=== PATIENT | male | born 1950 | race Caucasian/White ===

== ENCOUNTER → 2016-12-02 | Outpatient (CLI) | payer OTHER ==
[~2016-12-02] MED LIST: BUPR-79 PO; CHOL2000 PO; CLON0.5T3 PO; DOCU100C PO; FLUO10CA48 PO; LISI-725 PO; MULT-600 PO; OMEG10007 PO; PSYL1POW4 PO; ROSU20TA PO; TAMS0.4C38 PO; VITAMIN B12 PO
== END | disposition home or self-care (01) ==
LOC: C.LABBC 12:47
PROVIDERS: ATTEND Nurse Practitioner Adult Health
DX: R97.20 Elevated prostate specific antigen [PSA] (principal); R39.9 Unspecified symptoms and signs involving the genitourinary system

== ENCOUNTER → 2016-12-23 | Outpatient (CLI) | payer OTHER ==
[2016-12-23 13:01] LABS: BASO % 0.5 %; BASO ABS # 0.03 K/uL (0-0.2); COMPLETE YES; EOS % 3.4 %; HEMATOCRIT 41.1 % (42-52); IG% 0.2 %; LYMPH % 15.8 %; LYMPH ABS # 0.89 K/uL (1.2-3.4); MEAN CORPUSCULAR HGB CONC 34.8 g/dl (32-36); MEAN PLATELET VOLUME 9.2 fL (7.4-10.4); MONO % 7.6 %; NEUT % 72.5 %; PLATELET COUNT 263 K/uL (130-400); RED BLOOD COUNT 4.62 M/uL (4.7-6.1); WHITE BLOOD COUNT 5.63 K/uL (4.8-10.8)
[2016-12-23 13:05] LABS: URINE APPEARANCE CLEAR (CLEAR); URINE BILIRUBIN NEG (NEG); URINE COLOR YELLOW; URINE EPITHELIAL CELL AUTO 0-5 /lpf (0-5); URINE NITRITE NEG (NEG); URINE PH 5.5 (4.5-7.5); URINE SPECIFIC GRAVITY 1.014 (1.000-1.030); UROBILINOGEN NEG (NEG); ZZUR CULT IF INDIC CLEAN CATCH NO
[2016-12-23 13:13] LABS: MANUAL MICROSCOPIC REQUIRED? NO; REVIEW REQ? NO
[2016-12-23 13:16] LABS: ALT/SGPT 22 U/L (12-78); AST/SGOT 14 U/L (15-37); BLOOD UREA NITROGEN 25 mg/dl (7-18); BUN/CREATININE RATIO 16.4 (10-20); CALCIUM 9.4 mg/dl (8.5-10.1); CARBON DIOXIDE 23 mmol/L (21-32); CHLORIDE 104 mmol/L (98-107); CHOLESTEROL 122 mg/dl (0-200); GLUCOSE 98 mg/dl (70-99); POTASSIUM 4.9 mmol/L (3.5-5.1); SODIUM 136 mmol/L (136-145); TRIGLYCERIDES 99 mg/dl (0-150); VERY LOW DENSITY LIPOPROT CALC 20 mg/dl
[2016-12-23 13:26] LABS: ALB/GLOB RATIO 1.3 (0.9-2); ALKALINE PHOSPHATASE 74 U/L (45-117); CHOLESTEROL/HDL RATIO 2.9; FERRITIN 205.8 ng/ml (8.0-388.0); HDL CHOLESTEROL 42 mg/dl; LDL CHOLESTEROL CALCULATED 60 mg/dl; THYROID STIMULATING HORMONE < 0.005 uIu/ml (0.300-4.500); TOTAL IRON BINDING CAPACITY 311 mcg/dl (250-450)
--- NOTE | 2016-12-27 10:32 | CODING QUERY MEDICAL NECESSITY ---
SUPPORTING DIAGNOSIS NEEDED A supporting diagnosis is required for the test/procedure performed on this patient in order for us to be reimbursed by the patient's insurance. Please provide a supporting diagnosis for the following test/procedure listed below next to the test name along with your signature. *If there is no additional diagnosis for this patient that would support the following test/procedure please document that below next to the test/procedure. Test(s)/Procedure(s) that require a supporting diagnosis: * VITAMIN B-12 LEVEL DIAGNOSIS: * DOS: 12/23/16 Provider Signature: Date: Thank you Adalgisa Villareal Health Information Management Once completed, please kindly fax back to [phone] For questions please call [phone]
== END | disposition home or self-care (01) ==
LOC: C.LAB1850 11:07
PROVIDERS: ATTEND Internal Medicine
DX: E78.00 Pure hypercholesterolemia, unspecified (principal); I10 Essential (primary) hypertension; Z11.59 Encounter for screening for other viral diseases; G25.81 Restless legs syndrome

== ENCOUNTER → 2017-01-18 | Outpatient (CLI) | payer OTHER | END | disposition home or self-care (01) | LOC: C.LABBC 12:19 | PROVIDERS: ATTEND Urology | DX: N41.9 Inflammatory disease of prostate, unspecified (principal) ==

== ENCOUNTER → 2017-01-31 | Outpatient (CLI) | payer OTHER | END | disposition home or self-care (01) | LOC: C.RDSM 13:30 | PROVIDERS: ATTEND Physical Medicine & Rehabilitation Sports Medicine | DX: M17.11 Unilateral primary osteoarthritis, right knee (principal); M25.561 Pain in right knee; Z96.652 Presence of left artificial knee joint; R94.6 Abnormal results of thyroid function studies; R79.89 Other specified abnormal findings of blood chemistry ==

== ENCOUNTER → 2017-01-31 | Outpatient (CLI) | payer OTHER ==
[2017-01-31 14:54] LABS: BLOOD UREA NITROGEN 16 mg/dl (7-18); BUN/CREATININE RATIO 16.5 (10-20); CALCIUM 9.5 mg/dl (8.5-10.1); CARBON DIOXIDE 27 mmol/L (21-32); CHLORIDE 106 mmol/L (98-107); CREATININE 0.99 mg/dl (0.60-1.40); GLUCOSE 75 mg/dl (70-99); POTASSIUM 3.9 mmol/L (3.5-5.1); SODIUM 143 mmol/L (136-145)
[2017-01-31 15:04] LABS: THYROID STIMULATING HORMONE 0.062 uIu/ml (0.300-4.500)
== END | disposition home or self-care (01) ==
LOC: C.LAB1850 12:51
PROVIDERS: ATTEND Internal Medicine
DX: R94.6 Abnormal results of thyroid function studies (principal); R79.89 Other specified abnormal findings of blood chemistry

== ENCOUNTER → 2017-02-14 | Outpatient (CLI) | payer OTHER ==
--- NOTE | 2017-02-14 15:35 | DIAGNOSTIC IMAGING REPORT ---
THYROID ULTRASOUND CLINICAL HISTORY: Dysphagia. COMPARISON STUDY: None. TECHNIQUE: Sonography of the thyroid gland was performed. FINDINGS: The right thyroid lobe measures 5.2 x 1.9 x 1.3 cm and the left lobe measures 5.5 x 1.8 x 1.4 cm. The gland is heterogeneous. No discrete nodules are identified. Isthmus measures 0.4 cm in thickness. IMPRESSION: 1. Minimally enlarged, heterogeneous thyroid gland. 2. No thyroid nodules identified. Electronically signed by: Doyle Wilburn M.D. 02/14/2017 3:34 PM Dictated Date/Time: 02/14/2017 3:33 PM
== END | disposition home or self-care (01) ==
LOC: C.ULTRBC 13:46
PROVIDERS: ATTEND Internal Medicine
DX: R13.10 Dysphagia, unspecified (principal)

== ENCOUNTER → 2017-02-23 | Outpatient (CLI) | payer OTHER ==
--- NOTE | 2017-02-23 09:03 | DIAGNOSTIC IMAGING REPORT ---
(BARIUM SWALLOW) ESOPHAGUS CLINICAL HISTORY: Throat fullness. Difficulty swallowing. Coughing. COMPARISON STUDY: None. FLUOROSCOPY TIME: 0.8 minutes. 30 images submitted. FINDINGS: The patient swallowed barium without difficulty. The contours of the hypopharynx are within normal limits. Mild esophageal dysmotility. Esophagus normal in course and caliber. No hiatus hernia. No gastroesophageal reflux. No barium tablets are available for this study. IMPRESSION: Mild esophageal dysmotility. Otherwise, normal upper GI series. Electronically signed by: Emmanuel Leiva M.D. 02/23/2017 9:02 AM Dictated Date/Time: 02/23/2017 8:59 AM
== END | disposition home or self-care (01) ==
LOC: C.RAD 08:02
PROVIDERS: ATTEND Internal Medicine
DX: R13.10 Dysphagia, unspecified (principal)

== ENCOUNTER → 2017-03-02 | Outpatient (CLI) | payer OTHER ==
--- NOTE | 2017-03-02 15:16 | DIAGNOSTIC IMAGING REPORT ---
KUB HISTORY: N20.0 Calculus of [id number] COMPARISON: KUB 03/19/2016. FINDINGS: The bowel gas pattern is unremarkable. There are no dilated loops of small bowel to suggest an obstruction. No renal calculi. No ureteral calculi. Calcifications in the deep pelvis likely represent phleboliths. These are not significantly changed. Small amount of barium within a few of the sigmoid diverticula. No pneumoperitoneum or pneumatosis. IMPRESSION: No renal or ureteral calculi identified. Electronically signed by: Emmanuel Leiva M.D. 03/02/2017 3:14 PM Dictated Date/Time: 03/02/2017 3:10 PM
== END | disposition home or self-care (01) ==
LOC: C.RADBC 14:39
PROVIDERS: ATTEND Urology
DX: N20.0 Calculus of kidney (principal)

== ENCOUNTER → 2017-03-04 | Outpatient (CLI) | payer OTHER ==
[2017-03-04 11:28] LABS: THYROID STIMULATING HORMONE 3.96 uIu/ml (0.300-4.500)
== END | disposition home or self-care (01) ==
LOC: C.LABBC 07:27
PROVIDERS: ATTEND Physician Assistant
DX: R68.82 Decreased libido (principal)

== ENCOUNTER → 2017-03-15 | Outpatient (CLI) | payer OTHER | END | disposition home or self-care (01) | LOC: C.RDSM 12:16 | PROVIDERS: ATTEND Physical Medicine & Rehabilitation | DX: M79.1 Myalgia (principal) ==

== ENCOUNTER → 2017-03-18 | Outpatient (CLI) | payer OTHER | END | disposition home or self-care (01) | LOC: C.LABSPEC 15:45 | PROVIDERS: ATTEND Urology | DX: R35.0 Frequency of micturition (principal) ==

== ENCOUNTER → 2017-03-21 | Outpatient (CLI) | payer OTHER ==
--- NOTE | 2017-03-21 14:48 | DIAGNOSTIC IMAGING REPORT ---
ABDOMEN AND PELVIS CT WITHOUT CONTRAST CT DOSE: 1350.27 mGy.cm HISTORY: Back pain. Flank pain. M54.5 Low back pain PRE CERT REQUIRED PER DEEPTI @ [employer] - REF#3 TECHNIQUE: Multiaxial CT images of the abdomen and pelvis were performed without contrast. COMPARISON STUDY: None. FINDINGS: Minimal low suspicion micronodularity lung bases. Lung bases are considered clear of acute infiltrate. There is been pancreas appear unremarkable. Kidneys negative for hydronephrosis. There is trace amount of perinephric fat stranding but this is symmetric and most likely unremarkable for age. There are no obstructing urinary tract calcifications. Bladder is midline. There are no contained calcifications. Bowel pattern suggests chronic sigmoid as well as descending colonic diverticulosis. No evidence for acute air radiculitis. Bowel pattern again is nonobstructive. IMPRESSION: 1. No acute abnormality of the urinary tracts. 2. Chronic sigmoid as well as descending colonic diverticulosis. 3. No acute diverticulitis. 4. Nonobstructive bowel pattern. Electronically signed by: Juanjose Little M.D. 03/21/2017 2:47 PM Dictated Date/Time: 03/21/2017 2:43 PM
== END | disposition home or self-care (01) ==
LOC: C.CTS 14:30
PROVIDERS: ATTEND Nurse Practitioner Adult Health
DX: M54.5 Low back pain (principal)

== ENCOUNTER → 2017-03-23 | Outpatient (CLI) | payer OTHER ==
[2017-03-23 12:20] LABS: FERRITIN 70.7 ng/ml (8.0-388.0)
== END | disposition home or self-care (01) ==
LOC: C.LAB1850 10:12
PROVIDERS: ATTEND Internal Medicine
DX: G25.81 Restless legs syndrome (principal)

== ENCOUNTER → 2017-04-04 | Outpatient (CLI) | payer OTHER ==
[2017-04-04 17:53] LABS: THYROID STIMULATING HORMONE 2.96 uIu/ml (0.300-4.500)
== END | disposition home or self-care (01) ==
LOC: C.LAB1850 15:56
PROVIDERS: ATTEND Internal Medicine Endocrinology, Diabetes & Metabolism
DX: E06.9 Thyroiditis, unspecified (principal)

== ENCOUNTER → 2017-05-31 | Outpatient (CLI) | payer OTHER ==
[2017-05-31 17:35] LABS: THYROID STIMULATING HORMONE 0.007 uIu/ml (0.300-4.500)
== END | disposition home or self-care (01) ==
LOC: C.LABBC 14:47
PROVIDERS: ATTEND Physician Assistant
DX: E03.9 Hypothyroidism, unspecified (principal)

== ENCOUNTER → 2017-08-01 | Outpatient (CLI) | payer OTHER ==
[2017-08-01 10:18] LABS: THYROID STIMULATING HORMONE 0.092 uIu/ml (0.300-4.500)
== END | disposition home or self-care (01) ==
LOC: C.LAB1850 08:08
PROVIDERS: ATTEND Physician Assistant
DX: E03.9 Hypothyroidism, unspecified (principal)

== ENCOUNTER → 2017-08-31 | Outpatient (CLI) | payer OTHER ==
[2017-08-31 14:02] LABS: THYROID STIMULATING HORMONE 0.249 uIu/ml (0.300-4.500)
== END | disposition home or self-care (01) ==
LOC: C.LABBC 11:58
PROVIDERS: ATTEND Physician Assistant
DX: E03.9 Hypothyroidism, unspecified (principal)

== ENCOUNTER → 2017-11-07 | Outpatient (CLI) | payer OTHER ==
[2017-11-07 14:32] LABS: THYROID STIMULATING HORMONE 0.121 uIu/ml (0.300-4.500)
== END | disposition home or self-care (01) ==
LOC: C.LABBC 11:00
PROVIDERS: ATTEND Physician Assistant
DX: E03.9 Hypothyroidism, unspecified (principal)

== ENCOUNTER → 2017-11-22 | Outpatient (CLI) | payer OTHER | END | disposition home or self-care (01) | LOC: C.LAB1850 07:54 | PROVIDERS: ATTEND Student in an Organized Health Care Education/Training Program | DX: Z51.81 Encounter for therapeutic drug level monitoring (principal); Z79.899 Other long term (current) drug therapy ==

== ENCOUNTER → 2017-12-22 | Outpatient (CLI) | payer OTHER | END | disposition home or self-care (01) | LOC: C.LABBC 10:35 | PROVIDERS: ATTEND Physician Assistant | DX: E03.9 Hypothyroidism, unspecified (principal) ==

== ENCOUNTER → 2018-01-30 | Outpatient (CLI) | payer OTHER | END | disposition home or self-care (01) | LOC: C.RDSM 12:50 | PROVIDERS: ATTEND Physical Medicine & Rehabilitation Sports Medicine | DX: M25.561 Pain in right knee (principal); M25.562 Pain in left knee; Z96.652 Presence of left artificial knee joint ==

== ENCOUNTER → 2018-02-06 | Outpatient (CLI) | payer OTHER ==
[2018-02-06 13:23] LABS: ALBUMIN 3.8 gm/dl (3.4-5.0); ALT/SGPT 28 U/L (12-78); BLOOD UREA NITROGEN 17 mg/dl (7-18); CARBON DIOXIDE 26 mmol/L (21-32); CHOLESTEROL 154 mg/dl (0-200); CREATININE 0.99 mg/dl (0.60-1.40); GLUCOSE 89 mg/dl (70-99); POTASSIUM 3.8 mmol/L (3.5-5.1); SODIUM 139 mmol/L (136-145)
[2018-02-06 13:28] LABS: ALKALINE PHOSPHATASE 93 U/L (45-117); AST/SGOT 25 U/L (15-37); LDL CHOLESTEROL CALCULATED 90 mg/dl; TOTAL PROTEIN 7.5 gm/dl (6.4-8.2)
== END | disposition home or self-care (01) ==
LOC: C.LABBC 11:11
PROVIDERS: ATTEND Internal Medicine
DX: E03.9 Hypothyroidism, unspecified (principal); N40.1 Benign prostatic hyperplasia with lower urinary tract symptoms; E78.00 Pure hypercholesterolemia, unspecified

== ENCOUNTER 2021-03-11 05:21 | Observation (INO) ==
--- NOTE | 2021-02-27 11:07 | PAT Medication Instructions ---
Medication Instructions Date of Service February 27, 2021 Home Medications Medication Instructions Recorded omeprazole 20 mg capsule,delayed 20 mg PO QAM #90 cap 07/16/19 release lisinopril 20 mg tablet 20 mg PO QAM #90 tab 10/01/19 rosuvastatin 10 mg tablet 10 mg PO QPM #90 tab 09/12/20 tamsulosin 0.4 mg capsule 0.8 mg PO HS #180 cap 09/29/20 pramipexole 0.5 mg tablet 0.5 mg PO .COMPLEX #270 tab 10/08/20 fluoxetine 20 mg PO QAM nortriptyline 20 mg PO HS Men's Multivitamin 1 tab PO QAM aspirin 81 mg PO QAM omega 5-ioj-cec-fish oil [Fish Oil] 1 tab PO BID amoxicillin 500 mg PO UD PRN omeprazole 20 mg capsule,delayed release 20 mg PO QAM lisinopril 20 mg tablet 20 mg PO QAM Icy Hot 1 applic TOPICAL BID PRN gabapentin 100 mg capsule 300 mg PO HS rosuvastatin 10 mg tablet 10 mg PO QPM tamsulosin 0.4 mg capsule 0.8 mg PO HS clonazepam 0.5 mg tablet 0.5 mg PO HS pramipexole 0.5 mg tablet 0.5 mg PO .COMPLEX loratadine-pseudoephedrine [Claritin-D 12 Hour] 1 tab PO Q12H cholecalciferol (vitamin D3) 50 mcg PO QAM 0 cyanocobalamin (vitamin B-12) 1,000 mcg PO QAM Continue as directed amoxicillin 500 mg PO UD PRN (if needed) STOP taking 2 weeks before surgery omega 5-vfa-xci-fish oil [Fish Oil] 1 tab PO BID STOP taking 24 hours before surgery Icy Hot 1 applic TOPICAL BID PRN DO NOT take the morning of surgery cholecalciferol (vitamin D3) 50 mcg PO QAM cyanocobalamin (vitamin B-12) 1,000 mcg PO QAM loratadine-pseudoephedrine [Claritin-D 12 Hour] 1 tab PO Q12H pramipexole 0.5 mg tablet 0.5 mg PO .COMPLEX lisinopril 20 mg tablet 20 mg PO QAM Men's Multivitamin 1 tab PO QAM Take morning of surgery With a small sip of water, OTHERWISE NOTHING TO EAT OR DRINK AFTER MIDNIGHT: omeprazole 20 mg capsule,delayed release 20 mg PO QAM aspirin 81 mg PO QAM (unless surgeon directs otherwise) fluoxetine 20 mg PO QAM Take evening before surgery nortriptyline 20 mg PO HS gabapentin 100 mg capsule 300 mg PO HS rosuvastatin 10 mg tablet 10 mg PO QPM tamsulosin 0.4 mg capsule 0.8 mg PO HS clonazepam 0.5 mg tablet 0.5 mg PO HS pramipexole 0.5 mg tablet 0.5 mg PO .COMPLEX loratadine-pseudoephedrine [Claritin-D 12 Hour] 1 tab PO Q12H Other Notes If you have any questions please call us at [phone] or [phone] or [phone] or [phone]
--- NOTE | 2021-02-27 11:35 | Anesthesiology Consultation ---
Date of Service February 27, 2021 Assessment & Plan (1) Encounter for pre-operative examination: Chart Review Chart Review: Acceptable Risk for Surgery (pending surgeon ordered PCP clearance and preop Covid testing ) and Patient seen in Pre Admission Testing Pending surgeon ordered PCP clearance scheduled 03/03/21 Per PAT appt on 02/27/21, pt denies any recent travel or large group gatherings. No known Covid positive contacts or Covid related symptoms. No known Covid infection in the past 90 days. Preop Covid testing scheduled 03/05/21= will await results. Educated on importance of self quarantining, social distancing and wearing mask in public both for the patient and household contacts. Left TKA 06/04/15= Done initially with SAB at L4-5 with one attempt. Spinal faile d and switched to GA. Smooth propofol induction with LMA. LMA#4. Failed to seat with LMA #5. LMA #[address] by ENGINE MANAGER (anesthesia record included in chart) Teaching & Discussion Pre-Anesthesia Teaching/Discussion Notes: Instructed NPO after midnight before surgery,except medications with 15 cc of water. Medication instructions pr ovided according to the PAT guidelines. History Surgery Operation Date: 03/11/21 09:35 Proposed Procedures p Total Knee Arthroplasty - Pranay Griffith MD Height/Weight Height: 5 ft 7.5 in Weight: 98.4 kg Allergies Allergy/AdvReac Type Severity Reaction Status Date / Time No Known Allergies Allergy Verified 02/27/21 10:55 Medications Home Medications Medication Instructions Recorded Confirmed Last Taken fluoxetine 20 mg PO QAM 09/01/18 02/27/21 12/17/20 nortriptyline 20 mg PO HS 09/01/18 02/27/21 12/16/20 Men's Multivitamin 1 tab PO QAM 10/19/18 02/27/21 12/17/20 aspirin 81 mg PO QAM 10/19/18 02/27/21 12/17/20 omega 2-fxp-jph-fish oil [Fish Oil] 1 tab PO BID 10/19/18 02/27/21 12/17/20 08:00 amoxicillin 500 mg PO UD PRN 03/07/19 02/27/21 Unknown omeprazole 20 mg capsule,delayed 20 mg PO QAM #90 cap 07/16/19 02/27/21 12/17/20 release lisinopril 20 mg tablet 20 mg PO QAM #90 tab 10/01/19 02/27/21 12/17/20 Icy Hot 1 applic TOPICAL BID PRN 05/16/20 02/27/21 Unknown gabapentin 100 mg capsule 300 mg PO HS cap 08/12/20 02/27/21 12/16/20 rosuvastatin 10 mg tablet 10 mg PO QPM #90 tab 09/12/20 02/27/21 12/16/20 tamsulosin 0.4 mg capsule 0.8 mg PO HS #180 cap 09/29/20 02/27/21 12/16/20 clonazepam 0.5 mg tablet 0.5 mg PO HS tab 10/08/20 02/27/21 12/16/20 pramipexole 0.5 mg tablet 0.5 mg PO .COMPLEX #270 tab 10/08/20 02/27/21 12/17/20 14:00 0.25 MG loratadine-pseudoephedrine 1 tab PO Q12H 12/17/20 02/27/21 12/17/20 08:00 [Claritin-D 12 Hour] cholecalciferol (vitamin D3) 50 mcg PO QAM 02/27/21 02/27/21 Unknown cyanocobalamin (vitamin B-12) 1,000 mcg PO QAM 02/27/21 02/27/21 Unknown Past Medical History Medical History BPH (benign prostatic hyperplasia) Bradycardia Has had on EKG's occasionally> low as 47 Pt was avid runner in the past (not recently) - no issues with household silvino [employer] activities Carotid artery stenosis No hemodynamically significant stenosis identified in bilateral internal carotid arteries per 01/21/2020 cerebrovascular duplex Depression Stable GERD (gastroesophageal reflux disease) Well controlled and stable History of anesthesia reaction During left knee replacement, spinal not successful- converted to GA Hypercholesterolemia Hypertension Osteoarthritis Restless leg syndrome Right LE aggravated - prolonged sitting can trigger symptoms Sciatic nerve pain Well controlled - was following with Dr Flynn for epidural injections- no recent issues Scoliosis Sleep apnea Cannot tolerate CPAP Exercise / Class Metabolic Activity II 4-5 Yardwork/Stairs/Walk up hill (one flight of stairs - no chest pain or SOB ) Past Family History Family History Grandmother (Maternal) Family history of diabetes mellitus Father Family hx colonic polyps Heart disease Prostate cancer Grandmother (Paternal) Breast cancer Mother Myocardial infarction Grandfather (Paternal) Myocardial infarction Denies family history of Ovarian cancer Colorectal cancer Past Surgical History Surgical History History of ankle surgery RT History of arthroscopy of left knee History of arthroscopy of left shoulder History of colonoscopy History of tonsillectomy History of tooth extraction History of total left knee replacement (TKR) Hx of hand surgery left hand middle finger cyst removed> benign S/P epidural steroid injection Status post correction of deviated nasal septum Past Anesthesia History No Hx of Anesthesia Complications (failed spinal with 2014 TKA - converted GA ) and No Family Hx of Anesthesia Complications History of PONV No Hx of Motion Sickness and History of PONV (one episode- feels related to Percocet ) Social History Smoking Status: Never smoker Do You Dip or Chew Tobacco: No Hx Alcohol Use: Yes Alcohol type: beer alcohol intake frequency: holidays/special occasions only Hx Substance Use: No substance use type: does not use Review of Systems Patient denies chest pain, shortness of breath, dyspnea on exertion, cough, wheezing, palpitations. No hx of seizures, stroke, IN. No hx of blood clots or blood transfusions Physical Exam Vital Signs VITALS BP 130/80 P 58 TEMP 97.8 SP02 99% RESP 16 Constitutional no acute distress ENMT Mouth: no TMJ clicking Thyromental Distance: > or= 3.5 Finger Breadths (3.5) Mallampati Class: I Lower left permanent bridge Neck neck extension not limited Respiratory normal respiratory effort; no respiratory distress Auscultation: lungs clear to auscultation bilaterally; no wheezes Cardiovascular Rate/Rhythm: regular rate and regular rhythm Heart Sounds: no murmur Vessels: no carotid bruit Musculoskeletal Spine: no pain with cervical ROM Extremities: extremities normal to inspection Psychiatric Orientation: alert Testing Laboratory Results 02/27/21 11:50 02/27/21 11:50 PT 10.5 Seconds (9.0-12.0) 02/27/21 11:50 INR 1.0 (0.9-1.1) 02/27/21 11:50 APTT 28.4 Seconds (21.0-31.0) 02/27/21 11:50 Urine Color Yellow 02/27/21 Unknown Urine Appearance Clear (Clear) 02/27/21 Unknown Urine pH 6.5 (4.5-7.5) 02/27/21 Unknown Ur Specific [place] 1.027 (1.000-1.030) 02/27/21 Unknown Urine Protein Negative (Negative) 02/27/21 Unknown Urine Glucose (UA) Negative (Negative) 02/27/21 Unknown Urine Ketones Trace (Negative) H 02/27/21 Unknown Urine Nitrite Negative (Negative) 02/27/21 Unknown Ur Leukocyte Esterase Negative (Negative) 02/27/21 Unknown Blood Type B Positive 02/27/21 11:50 Antibody Screen NEGATIVE 02/27/21 11:50 Electrocardiogram Date: 02/27/21 SB with occ PVCs at 50bpm. Otherwise normal EKG. Chest X-Ray Date: 02/27/21 Findings: + NAD and + cardiomegaly There is mild left basilar scarring/atelectasis. Other Testing Carotid Duplex 01/21/20= no hemodynamically significant stenosis identified in bilateral internal carotid arteries. Antegrade flow in both vertebral arteries.
--- NOTE | 2021-02-27 12:08 | XRay Report ---
TWO VIEW CHEST CLINICAL HISTORY: Preoperative examination. Cardiomegaly. FINDINGS: PA and lateral chest radiographs are compared to study dated 12/17/2020. The heart is enlarg ed noting atherosclerotic calcification of the thoracic aorta. The pulmonary vasculature is nonconges steve. There is mild left basilar scarring/atelectasis. The lungs and pleural spaces are otherwise chito r. There is no pneumothorax. The skeletal structures are osteopenic. The bony thorax appears intact. Degenerative change is noted throughout the thoracic spine. IMPRESSION: Cardiac enlargement with no active disease in the chest. ACT 112: Negative or not required by law. Electronically signed by: Greg Calderon M.D. 02/27/2021 12:07 PM
[2021-02-27 13:06] LABS: Basophils # (auto) 0.03 K/uL (0-0.2); Basophils % (auto) 0.5 %; Eosinophils # (auto) 0.18 K/uL (0-0.5); Eosinophils % (auto) 2.7 %; Hematocrit (blood only) 40.4 % (42-52); Hemoglobin 13.4 g/dL (14.0-18.0); Immature Granulocytes # (auto) 0.01 K/uL (0.00-0.02); Immature Granulocytes % (auto) 0.2 %; Lymphocytes # (auto) 1.15 K/uL (1.2-3.4); Lymphocytes % (auto) 17.6 %; Mean Corpuscular Hemoglobin 29.8 pg (25-34); Mean Corpuscular Hgb Conc 33.2 g/dL (32-36); Mean Platelet Volume 9.5 fL (7.4-10.4); Monocytes # (auto) 0.35 K/uL (0.11-0.59); Monocytes % (auto) 5.3 %; Neutrophils # (auto) 4.83 K/uL (1.4-6.5); Neutrophils % (auto) 73.7 %; Platelet Count 269 K/uL (130-400); RDW Standard Deviation 42.8 fL (36.4-46.3); Red Blood Count 4.49 M/uL (4.7-6.1); White Blood Count 6.55 K/uL (4.8-10.8)
[2021-02-27 13:11] LABS: Calcium 8.8 mg/dl (8.5-10.1); Creatinine Clr Calc Pharmacy 77.9 ml/min; Est GFR (African American) 89.5; Est GFR (Non-African American) 77.3; Potassium 4.1 mmol/L (3.5-5.1)
[2021-02-27 13:20] LABS: Partial Thromboplastin Ratio 1.1; Partial Thromboplastin Time 28.4 Seconds (21.0-31.0); Prothrombin Time 10.5 Seconds (9.0-12.0)
[2021-02-27 13:26] LABS: Appearance Urine Clear (Clear); Bilirubin Urine Negative (Negative); Blood Urine Negative (Negative); Color Urine Yellow; Glucose Urine UA Negative (Negative); Ketones Urine Trace (Negative); Leukocyte Esterase Urine Negative (Negative); Nitrite Urine Negative (Negative); Protein Urine Negative (Negative); Specific Gravity Urine 1.027 (1.000-1.030); Urobilinogen Urine Negative (Negative); pH Urine 6.5 (4.5-7.5)
--- NOTE | 2021-02-28 07:27 | Electrocardiogram Report ---
Test Reason : Blood Pressure : / mmHG Vent. Rate : 050 BPM Atrial Rate : 050 BPM P-R Int : 200 ms QRS Dur : 100 ms QT Int : 470 ms P-R-T Axes : 055 012 026 degrees QTc Int : 428 ms Sinus bradycardia with occasional Premature ventricular complexes Otherwise normal ECG When compared with ECG of 17-DEC-2020 18:00, Premature ventricular complexes are now Present Nonspecific T wave abnormality no longer evident in Anterior leads Confirmed by Kyle Flood ([id number]) on 02/28/2021 7:26:50 AM Referred By: Pranay Griffith Confirmed By:Kyle Flood
--- NOTE | 2021-03-04 16:43 | History & Physical Report ---
Date of Service March 04, 2021 Assessment & Plan (1) Right knee DJD: Postoperative prescriptions for Percocet and Coumadin 2 mg will be provided at discharge from the hospital. Anticipate discharge to home with home health services. He already has a walker and raised toilet seat. Preoperative lab work, EKG and chest x-ray were ordered today. PDMP was checked and there are no concerning findings. The patient is aware of the COVID-19 risks associated with surgery. He is currently asymptomatic of any COVID-19 symptoms. He has already received his COVID vaccine. He will obtain nasal swab testing 1 week prior to surgery. He forgot to make an appointment to see his PCP for preop clearance. He was instructed to go to her office today to make the appointment. Call with any other concerns. History of Present Illness Chief Complaint: Right knee pain Primary Care Provider: Agnes Javier MD This 70-year-old male presents for his preoperative history and physical. He is scheduled to undergo a right knee total knee arthroplasty on 03/11/2021. The patient has had a longstanding history of right knee pain. It has been ongoing for years. He was initially able to manage with viscosupplementation injections, cortisone injections, bracing and activity modification. Over the last year, his pain has become worse. He is now having severe difficulty ambulating. Pain is worse with weightbearing. It is affecting his ADLs. He denies any numbness or tingling. Frequent night pain. Infrequent effusions. He feels ready to proceed. Preoperative imaging has been obtained. He has a history of previous left total knee arthroplasty and has done very well with it. He elects to proceed with the same on the right. Allergies Allergy/AdvReac Type Severity Reaction Status Date / Time No Known Allergies Allergy Verified 02/27/21 10:55 Home Medications Medication Instructions Recorded Confirmed Type fluoxetine 20 mg PO QAM 09/01/18 03/03/21 History nortriptyline 20 mg PO HS 09/01/18 03/03/21 History Men's Multivitamin 1 tab PO QAM 10/19/18 03/03/21 History aspirin 81 mg PO QAM 10/19/18 03/03/21 History omega 4-xlo-erk-fish oil [Fish Oil] 1 tab PO BID 10/19/18 03/03/21 History amoxicillin 500 mg PO UD PRN 03/07/19 03/03/21 History omeprazole 20 mg capsule,delayed 20 mg PO QAM #90 cap 07/16/19 03/03/21 Rx release lisinopril 20 mg tablet 20 mg PO QAM #90 tab 10/01/19 03/03/21 Rx Icy Hot 1 applic TOPICAL BID PRN 05/16/20 03/03/21 History gabapentin 100 mg capsule 300 mg PO HS cap 08/12/20 03/03/21 History rosuvastatin 10 mg tablet 10 mg PO QPM #90 tab 09/12/20 03/03/21 Rx tamsulosin 0.4 mg capsule 0.8 mg PO HS #180 cap 09/29/20 03/03/21 Rx clonazepam 0.5 mg tablet 0.5 mg PO HS tab 10/08/20 03/03/21 History pramipexole 0.5 mg tablet 0.5 mg PO .COMPLEX #270 tab 10/08/20 03/03/21 Rx loratadine-pseudoephedrine 1 tab PO Q12H 12/17/20 03/03/21 History [Claritin-D 12 Hour] cholecalciferol (vitamin D3) 50 mcg PO QAM 02/27/21 03/03/21 History cyanocobalamin (vitamin B-12) 1,000 mcg PO QAM 02/27/21 03/03/21 History Past Med/Surg History Medical History BPH (benign prostatic hyperplasia) Bradycardia Has had on EKG's occasionally> low as 47 Pt was avid runner in the past (not recently) - no issues with household daily activities Carotid artery stenosis No hemodynamically significant stenosis identified in bilateral internal carotid arteries per 01/21/2020 cerebrovascular duplex Depression Stable GERD (gastroesophageal reflux disease) Well controlled and stable History of anesthesia reaction During left knee replacement, spinal not successful- converted to GA Hypercholesterolemia Hypertension Osteoarthritis Restless leg syndrome Right LE aggravated - prolonged sitting can trigger symptoms Sciatic nerve pain Well controlled - was following with Dr Flynn for epidural injections- no recent issues Scoliosis Sleep apnea Cannot tolerate CPAP Surgical History History of ankle surgery RT History of arthroscopy of left knee History of arthroscopy of left shoulder History of colonoscopy History of tonsillectomy History of tooth extraction History of total left knee replacement (TKR) Hx of hand surgery left hand middle finger cyst removed> benign S/P epidural steroid injection Status post correction of deviated nasal septum Family History Grandmother (Maternal) Family history of diabetes mellitus Father Family hx colonic polyps Heart disease Prostate cancer Grandmother (Paternal) Breast cancer Mother Myocardial infarction Grandfather (Paternal) Myocardial infarction Denies family history of Ovarian cancer Colorectal cancer Social History Smoking Status: Never smoker Second Hand Exposure: Yes (as kid); Hx Alcohol Use: Yes Alcohol type: beer Hx Substance Use: No Preferred Language: Belarusian Communication Ability: Effective Aircraft Pneudraulics Repairer Required: No Beliefs That Will Affect Care: None marital status: Current Living Situation: Spouse current occupational status: retired Feels Safe at Home: Yes Childhood Exposure to Second-Hand Smoke: Yes Dental Care, Regularly: Yes Physical Activity Frequency: Daily Seatbelt Use: always Sunscreen Use: Yes Assistive Devices: Glasses Review of Systems Review of Systems: All systems reviewed & are unremarkable except as noted in HPI & below A total of 10 systems were reviewed. Physical Exam Physical Exam: Vitals: Height 169.2 cm, weight 98.4 kg, BMI 34.4, temperature 36.4, BP 126/76, O2 sat 96% on room air. General: Well-developed, well-nourished, elderly white male in no acute distress. Sitting in a chair. Alert and oriented. Has significant difficulty getting around today. Skin: Warm and dry with good turgor. No rashes or lesions. No ecchymosis or erythema. No intraarticular effusion. Obvious arthritic changes in the right knee. Large well-healed scar present on the left knee. HEENT: Normocephalic, atraumatic. Eyes: PERRLA, EOMI. Nares patent bilaterally without turbinate enlargement. Oropharynx exam deferred due to CO VID precautions. Heart: RRR, no MGR. Lungs: Clear to auscultation bilaterally, no crackles, rhonchi or wheezing, good air movement. Abdomen: Obese, bowel sounds present x4, soft, nontender. No organomegaly. No masses. Musculoskeletal: Right knee evaluation shows obvious arthritic changes. He has lack of a few degrees of terminal extension today. Flexion to greater than 110 degrees. Varus deformity. He has focal pain with palpation over the medial and lateral joint lines today. Stable collateral ligaments. No defect in the patellar tendon or quadriceps tendon. Ambulates with a significantly antalgic gait. Strength is 5/5 for resisted flexion and extension. Neurologic: Gross sensation is intact across the right leg by soft touch. Peripheral pulses are 2+. Results & Data Results & Data ([facility]) Diagnostic Findings Radiographic imaging obtained today shows significant degenerative changes within the right knee. Periarticular osteophytes, subchondral sclerosis and joint space narrowing are all present.
[2021-03-11] MEDS ORDERED: ROPIVACAINE 0.5% HCL/PF 150 MG, BUPIVACAINE 0.75% MPF 20 ML, EPINEPHrine 0.15 MG, Ketor... INFIL SCH (06:00)
[2021-03-11] MEDS ORDERED: LR 60ML/HR IV SCH (06:00)
[2021-03-11] MEDS ORDERED: TRANEXAMIC ACID 1,000 MG **IV Pre-op IV SCH (06:00)
[2021-03-11] MEDS ORDERED: ceFAZolin 2000MG 2,000 MG/15 ML SYR IV SCH (06:00)
[2021-03-11] MEDS ORDERED: LR 500ML BOLUS, THEN 15ML/HR IV SCH (06:00)
[2021-03-11] MEDS ORDERED: LIDOCAINE HCL 2% 2 ML VIAL/AMP(20MG/ML) INFIL ONE (06:21)
[2021-03-11] MEDS ORDERED: PROPOFOL IV EMULSION 10 MG/ML 20 ML VIAL IV ONE ×2 (06:21→07:16)
[2021-03-11] MEDS ORDERED: fentaNYL citrate 100 MCG/2 ML VIAL ONE (06:21)
[2021-03-11] MEDS ORDERED: MIDAZOLAM HCL 1 MG/ML 2ML VIAL ONE (06:21)
[2021-03-11] MEDS ORDERED: BUPIVACAINE 0.5 % 5 MG/1 ML PF 10ML VIAL ONE (06:24)
--- NOTE | 2021-03-11 06:24 | History & Physical Bridge Note ---
Date of Service March 11, 2021 History & Physical Bridge Note I have examined the patient, reviewed the History & Physical and in the interval since the performance of the History & Physical I have noted the following changes of clinical significance:consent obtained/site verified/covid screen negative. no changes noted
[2021-03-11] MEDS ORDERED: fentaNYL citrate 100 MCG/2 ML VIAL IV PRN (06:55)
[2021-03-11] MEDS ORDERED: ONDANSETRON INJ 2 MG/ML 2 ML VIAL IV PRN ×2 (06:55→09:57)
[2021-03-11] MEDS ORDERED: ePHEDrine sulfate 50 MG/ML AMP IV PRN (06:55)
[2021-03-11] MEDS ORDERED: ATROPINE SULFATE 0.1 MG/ML 10ML SYR IV PRN (06:55)
[2021-03-11] MEDS ORDERED: ORTHO JOINT ANESTHETIC ONE (07:14)
--- NOTE | 2021-03-11 08:29 | Post Operative Brief Note ---
Immediate Post Op Note v1 Date of Surgery March 11, 2021 Pre & Post Diagnosis Operation Date: 03/11/21 07:00 Pre-Op Diagnosis: Right Knee Degenerative Joint Disease Post-Op Diagnosis: Right Knee Degenerative Joint Disease I identified the patient and participated in the time-out.: Yes Procedure Operation Date: 03/11/21 07:00 Actual Procedures p Right Total Knee Arthroplasty(Right) - Pranay Griffith MD Surgeon Pranay Griffith MD Lineworker Celia/Andrzej Estimated Blood Loss 50 Findings Consistent with Post-Op Diagnosis
--- NOTE | 2021-03-11 08:40 | Operative Report ---
Post Operative Report Pre & Post Diagnosis Operation Date: 03/11/21 07:00 Pre-Op Diagnosis: Right Knee Degenerative Joint Disease Post-Op Diagnosis: Right Knee Degenerative Joint Disease I identified the patient and participated in the time-out.: Yes Procedure Operation Date: 03/11/21 07:00 Actual Procedures p Right Total Knee Arthroplasty(Right) - Pranay Griffith MD Surgeon STEVIE Griffith MD Cable Maintainer Celia/Andrzej SHIN Estimated Blood Loss 50 Findings Consistent with Post-Op Diagnosis Specimens see operative report Drains none Complications none Disposition Accompanied Patient To Recovery: Yes Disposition: Recovery Room Indications This 70-year-old male presented to the office with complaints of debilitating right knee pain. He had tried conservative care measures without improvement. He elected to proceed with surgical intervention after being educated about potential risks and outcomes. Preoperative imaging was obtained. He previously underwent left total knee arthroplasty and has done well with it. He elects to proceed with the same on the right. Description of Procedure Patient was administered a spinal anesthetic and then taken to the operating room where he was given sedation. He was prepped and draped in the usual sterile fashion. Please see Dr. Griffith's operative report for specifics of the procedure. I was present for the entire case from initial patient positioning through final wound closure. Assistance was provided in tissue retraction, hemostasis, trial implant placement, final implant placement, and final wound closure. Patient was taken to the recovery room in satisfactory condition. I attest to the content of the Intraoperative Record and any orders documented therein. Any exceptions are noted below.
[2021-03-11] MEDS ORDERED: VANCOMYCIN HCL 1,500 MG in SODIUM CHLORIDE 0.9% 250 ML IV SCH (08:47)
--- NOTE | 2021-03-11 08:59 | XRay Report ---
XR knee RT 1 or 2V routine CLINICAL HISTORY: S/P R TKA COMPARISON: Right knee radiographs February 27, 2021. FINDINGS: Alignment of the total right knee arthroplasty is anatomic. There is no periprosthetic fra cture or unexpected radiopaque foreign body. Skin familia are present. IMPRESSION: Expected findings following total right knee arthroplasty. ACT 112: Negative or not required by law. Electronically signed by: Doyle Wilburn M.D. 03/11/2021 8:57 AM
[2021-03-11] MEDS ORDERED: VANCOMYCIN HCL 1,500 MG in SODIUM CHLORIDE 0.9% 500 ML IV ONE (09:00)
--- NOTE | 2021-03-11 09:34 | Anesthesiology Progress Note ---
Date of Service March 11, 2021 Anesthesia Post Procedure Vital Signs Vital Signs: Temp Pulse Pulse Resp BP BP Pulse Ox 03/11/21 09:25 52 L 15 131/78 100 03/11/21 09:15 97.5 F L 60 10 L 138/78 96 03/11/21 09:05 55 L 12 130/70 100 03/11/21 08:55 59 L 13 117/73 99 03/11/21 08:45 67 16 114/63 100 03/11/21 08:39 97.3 F L 61 18 105/64 99 03/11/21 05:50 98.6 F 72 18 142/82 H 96 Transfer of Care Handoff Completed per policy Notes Mental Status: alert / awake / arousable and participated in evaluation Patient Amnestic to Procedure: Yes Nausea / Vomiting: adequately controlled Pain: adequately controlled Airway Patency, RR, SpO2: stable & adequate BP & HR: stable & adequate Hydration State: stable & adequate Neuraxial Anesthesia: was administered and sensory block is resolving Anesthetic Complications: no major complications apparent and Pt Satisfied with anesthetic care
--- NOTE | 2021-03-11 09:35 | Operative Report (OR) ---
DATE OF OPERATION: 03/11/2021 SURGEON: Pranay Griffith MD. BLOCKER AUTOMATIC: Celia. SECOND BLOCKER AUTOMATIC: Angelito Donnelly PA-C. PREOPERATIVE DIAGNOSIS: Osteoarthritis tricompartmental right knee. POSTOPERATIVE DIAGNOSIS: Osteoarthritis tricompartmental right knee. OPERATION PERFORMED: Cemented right total knee replacement. PERIOPERATIVE SITUATION: Medically cleared male with intractable knee pain that has progressed over a decade. He has failed conservative management including multiple injection treatments. At this point in time, his x-rays reveal tricompartmental disease. He wants to proceed with surgical treatment. He understands the risks and consequences. Consent obtained. SUMMARY OF IMPLANTS: Size 4 narrow right femur, size 4 mobile bearing tray tibia, 41 patella, 4 x 10 mm posterior cruciate substituting insert, 2 bags of Palacos G cement. BONE PATHOLOGY: Pending. ESTIMATED BLOOD LOSS: 50 mL. CRYSTALLOID: Per anesthesia. DVT prophylaxis per protocol. DESCRIPTION OF PROCEDURE: The patient was appropriately identified, site verified, consent verified. Antibiotics confirmed as being given. The right lower extremity was prepped and draped in the usual routine fashion. Tourniquet was inflated to 300 mmHg after exsanguination of limb with a rubber Esmarch bandage for a total tourniquet time of 53 minutes. Midline exposure was utilized. Parapatellar arthrotomy performed. Synovectomy completed, osteophytes resected. There was grade 4 disease along the medial trochlea along the medial weightbearing surface of the femur and the tibia and on the distal femur laterally. Once the distal femur was entered, cruciates were resected. The distal femur resected 12 mm, the proximal tibia resected 4 mm, extension gap was excellent. The femur was sized to a 4, appropriate cutting block applied and anterior, posterior condylar and chamfer cuts made and the flexion gap checked. It was excellent. The posterior capsule was then injected with Orthomix. Box cut was then made and the size 4 trial fit well. The tibia was then broached and reamed to a size 4, and with a 10 mm spacer, the range of motion was excellent, the patellar tracking was excellent, the stability was excellent in both full extension, mid range flexion and full flexion. Patella was resected leaving 16 mm and a 41 button was seated, it tracked well. The remaining Orthomix was then injected about the knee. The knee was then irrigated with Betadine and Pulsavac and then after cement was ready, the permanent implants were cemented in position, tibia, femur and patella in that order. After 12 minutes, the tourniquet was deflated. Minor bleeding points were controlled with electrocautery. Bone wax was used around the margins of the distal femur that were exposed to minimize blood loss. Wound was irrigated one final time with Betadine and Pulsavac, the permanent liner seated, the knee then reduced and closed with #2 Vicryl, 2-0 Vicryl and stainless steel clips. Appropriate dressing applied. The patient was transferred to recovery room in satisfactory condition having tolerated the procedure well. I attest to the content of the Intraoperative Record and any orders documented therein. Any exception s are noted below.
[2021-03-11] MEDS ORDERED: bisacodyL 10 MG SUPP PR PRN (09:57)
[2021-03-11] MEDS ORDERED: METOCLOPRAMIDE HCL INJ 5 MG/ML 2 ML VIAL IV PRN (09:57)
[2021-03-11] MEDS ORDERED: HYDROmorphone INJ 0.5 MG/0.5 ML SYR IV PRN (09:57)
[2021-03-11] MEDS ORDERED: SODIUM CHLORIDE 0.9% 1000ML 1,000 ML IV SCH (09:57)
[2021-03-11] MEDS ORDERED: oxyCODONE HCL IR 5 MG TAB (IMMEDIATE RELEASE) PO PRN (09:57)
[2021-03-11] MEDS ORDERED: ALUMINUM/MAGNESIUM SUSP 30 ML UDC PO PRN (09:57)
[2021-03-11] MEDS ORDERED: MAGNESIUM HYDROXIDE SUSP 30 ML UDC PO PRN (09:57)
[2021-03-11] MEDS ORDERED: NALOXONE HCL 0.4 MG/1 ML VIAL/CARP IV PRN (09:57)
[2021-03-11] MEDS ORDERED: diphenhydrAMINE 50 MG/ML VIAL IV PRN (09:57)
[2021-03-11] MEDS: MULTIVITAMIN TAB PO SCH (10:50)
[2021-03-11] MEDS: lisinopril 20 MG TAB PO SCH (10:51)
[2021-03-11] MEDS: DOCUSATE SODIUM 100 MG CAP PO SCH ×2 (10:52→20:13)
[2021-03-11] MEDS: KETOROLAC TROMETHAMINE 15 MG/ML VIAL IV SCH ×3 (10:52→22:28)
[2021-03-11] MEDS: FLUoxetine HCL 20 MG CAP PO SCH (10:52)
--- NOTE | 2021-03-11 11:54 | Progress Notes ---
DATE: 03/11/2021 SUBJECTIVE: Postop check status post right total knee replacement. The patient is doing well. Denies any chest pain, shortness of breath, fever, chills, nausea, vomiting or headache. OBJECTIVE: Vital signs are stable. He is afebrile. Spinal is wearing off. Can roll his legs now. Wound dressing clean, dry and intact. Postop x-rays look excellent. ASSESSMENT: Doing well. Continue to do followup care pathway. Mobilize as soon as he is able to. I will Hep-Lock the IV as soon as he is eating.
--- NOTE | 2021-03-11 11:57 | Discharge Summary (DS) ---
CHIEF COMPLAINT: Right knee pain. HISTORY OF PRESENT ILLNESS: Underwent elective right total knee replacement. Hospital course to date has been uneventful. If he does well overnight, will be discharged tomorrow. PAST MEDICAL HISTORY: Remarkable for BPH, bradycardia, carotid artery stenosis, depression, GERD, hypercholesterolemia, hypertension, osteoarthritis, restless legs syndrome, history of scoliosis with sciatica, sleep apnea. PAST SURGICAL HISTORY: Ankle surgery, knee surgeries, colonoscopies, tooth extractions. FAMILY HISTORY: Unremarkable. History of colonic polyps, heart disease, prostate cancer, breast cancer, myocardial infarction, ovarian cancer, colorectal cancer in relatives. REVIEW OF SYSTEMS: Reveals no chest pain, shortness of breath, fever, chills, nausea, vomiting or headache. ASSESSMENT: Status post right total knee replacement, doing well. Plan is for discharge to home tomorrow. Please see medication reconciliation sheet. He will be discharged on anticoagulant and pain management. Keep INR 1.8-2.2.
[2021-03-11] MEDS: ORTHO WARFARIN NOMOGRAM SCH (12:43)
[2021-03-11] MEDS: ASPIRIN 81 MG ECTAB PO SCH (13:27)
[2021-03-11] MEDS: ACETAMINOPHEN 500 MG TAB PO SCH ×2 (13:28→22:28)
[2021-03-11] MEDS ORDERED: PRAMIPEXOLE DIHYDROCHLO 0.5 MG TAB PO SCH ×2 (14:00→20:00)
[2021-03-11] MEDS ORDERED: ORTHO WARFARIN NOMOGRAM SCH (14:00)
[2021-03-11] MEDS ORDERED: TRANEXAMIC ACID / 0.7% NACL 1,000 MG/100 ML BAG IV SCH (14:46)
[2021-03-11] MEDS: ceFAZolin 2000MG 2,000 MG/15 ML SYR IV SCH ×2 (15:07→22:28)
[2021-03-11] MEDS ORDERED: WARFARIN SOD 5 MG TAB PO SCH (16:00)
[2021-03-11] MEDS: FERROUS GLUCONATE 324 MG TAB PO SCH (17:35)
[2021-03-11] MEDS: ASCORBIC ACID 500 MG TAB PO SCH (17:37)
[2021-03-11] MEDS ORDERED: GABAPENTIN 300 MG CAP PO SCH (21:00)
[2021-03-11] MEDS ORDERED: TAMSULOSIN HCL 0.4 MG CAP PO SCH (21:00)
[2021-03-11] MEDS ORDERED: SENNA 8.6 MG TAB PO SCH (21:00)
[2021-03-11] MEDS ORDERED: NORTRIPTYLINE HCL 10 MG CAP PO SCH (21:00)
[2021-03-11] MEDS ORDERED: ROSUVASTATIN CALCIUM 10 MG TAB PO SCH (21:00)
[2021-03-11] MEDS ORDERED: clonazePAM 0.5 MG TAB PO SCH (21:00)
[2021-03-12] MEDS: KETOROLAC TROMETHAMINE 15 MG/ML VIAL IV SCH (06:21)
[2021-03-12] MEDS: ACETAMINOPHEN 500 MG TAB PO SCH (06:21)
[2021-03-12 07:53] LABS: Hematocrit (blood only) 31.7 % (42-52); Hemoglobin 10.7 g/dL (14.0-18.0); Mean Corpuscular Hemoglobin 29.9 pg (25-34); Mean Corpuscular Hgb Conc 33.8 g/dL (32-36); Mean Corpuscular Volume 88.5 fL (80-100); Mean Platelet Volume 9.1 fL (7.4-10.4); Platelet Count 250 K/uL (130-400); RDW Coefficient of Variation 13.1 % (11.5-14.5); RDW Standard Deviation 42.3 fL (36.4-46.3); Red Blood Count 3.58 M/uL (4.7-6.1); White Blood Count 9.11 K/uL (4.8-10.8)
[2021-03-12] MEDS ORDERED: dexAMETHasone 10 MG in SYRINGE 0 ML IV SCH (08:00)
[2021-03-12 08:05] LABS: INR 1.1 (0.9-1.1); Prothrombin Time 10.7 Seconds (9.0-12.0)
--- NOTE | 2021-03-12 08:14 | Progress Notes ---
DATE: 03/12/2021 SUBJECTIVE: Postop day #1 status post right total knee replacement. The patient is sitting up in his chair drinking coffee. He states he feels well. He denies any chest pain, shortness of breath, fever, chills, nausea, vomiting, or headache. OBJECTIVE: Vital signs are stable. He is afebrile. Neurovascular check femoral sciatic nerve is normal. Wound dressing clean, dry and intact. LABORATORY WORK: Pending this morning. ASSESSMENT: Doing well. PLAN: To discharge to home today after PT, OT. Coumadin dose per nomogram prior to discharge. Follow up in 2 weeks for staple removal.
[2021-03-12] MEDS: DOCUSATE SODIUM 100 MG CAP PO SCH (08:20)
[2021-03-12] MEDS: ASCORBIC ACID 500 MG TAB PO SCH (08:20)
[2021-03-12] MEDS: FERROUS GLUCONATE 324 MG TAB PO SCH (08:20)
[2021-03-12] MEDS: FLUoxetine HCL 20 MG CAP PO SCH (08:21)
[2021-03-12] MEDS: lisinopril 20 MG TAB PO SCH (08:21)
[2021-03-12] MEDS: ASPIRIN 81 MG ECTAB PO SCH (08:21)
[2021-03-12] MEDS: MULTIVITAMIN TAB PO SCH (08:21)
[2021-03-12 08:22] LABS: Calcium 8.9 mg/dl (8.5-10.1); Creatinine Clr Calc Pharmacy 79.8 ml/min; Est GFR (Non-African American) 80.2
--- NOTE | 2021-03-12 09:07 | Orthopedic Progress Note ---
Date of Service March 12, 2021 Assessment & Plan (1) S/P total knee arthroplasty: Patient's dressing was changed today by me. Written discharge instructions were provided. Prescriptions for Percocet and Coumadin were sent to his pharmacy. Follow-up in the office on Tuesday for a dressing change. Patient is aware. Continue wearing the Knee immobilizer until Tuesday evening when out of bed. Keep his dressings dry. Continue using the walker or crutches for ambulation. Follow-up in the office in 2 weeks for staple removal as scheduled. Admission and Anticipated Discharge Date Admission Date: March 11, 2021 Subjective Patient was seen in his room this morning. He was sitting in a chair watching TV when I entered. Patient denies any chest pain, shortness of breath, nausea, vomiting, or abdominal pain. He states he has very little knee pain. He is very pleased with the outcome thus far. He feels ready for discharge to home today. No other complaints. He has been out of bed. Review of Systems Review of Systems: Unchanged from yesterday. Physical Exam Physical Exam: General: Well-developed, well-nourished, elderly male, sitting in a chair. Alert and oriented. Conversive this morning. No acute distress. Skin: Warm and dry with good turgor. Postoperative dressings are in place. Upon removal, incision line is closed with familia. No active bleeding. Scant drainage on his dressings. There is no active bleeding. Expected postoperative edema. No significant ecchymosis. Musculoskeletal: Patient has intact motor function of his hip, knee, ankle, and toes. He is able to perform a straight leg raise. He has full extension. Flexion to around 60 degrees easily. Neurologic: Gross sensation is intact across the right leg by soft touch. Peripheral pulses are 2+. Results & Data ([facility]) Vital Signs (Past 12 Hours) Vital Signs Temp Pulse Resp BP BP Pulse Ox 03/12/21 08:21 36.5 C 64 14 121/72 99 03/12/21 02:54 36.4 C L 68 16 109/61 97 03/11/21 22:49 36.5 C 79 18 136/71 95 Laboratory Results CBC obtained today shows a white count of 9.1, hemoglobin 10.7, hematocrit 31.7. Platelets 250,000. PT is 10.7 seconds, INR 1.1. PRP obtained today is unremarkable. Potassium 4.0, chloride 106, sodium 138, BUN 16, creatinine 0.95. Glucose 116.
[2021-03-12] MEDS: ORTHO WARFARIN NOMOGRAM SCH (10:34)
--- NOTE | 2021-03-12 14:29 | Operative Report ---
Post Operative Report Pre & Post Diagnosis Operation Date: 03/11/21 07:00 Pre-Op Diagnosis: Right Knee Degenerative Joint Disease Post-Op Diagnosis: Right Knee Degenerative Joint Disease I identified the patient and participated in the time-out.: Yes Procedure Operation Date: 03/11/21 07:00 Actual Procedures p Right Total Knee Arthroplasty(Right) - Pranay Griffith MD Surgeon Pranay Griffith MD Wood Preserving Plant Laborer Celia/Andrzej SHIN Estimated Blood Loss 50 Findings Consistent with Post-Op Diagnosis Specimens bone cuts Anesthesia Type Spinal Complications none Disposition Accompanied Patient To Recovery: Yes Disposition: Recovery Room Description of Procedure As per 's note I assisted in prepping and draping instruments handling, certain parts of the procedure and wound closure I attest to the content of the Intraoperative Record and any orders documented therein. Any exceptions are noted below.
[2021-03-12] MEDS ORDERED: WARFARIN SOD 5 MG TAB PO ONE (16:00)
== END 2021-03-12 12:54 | disposition home or self-care (01) ==
LOC: ASU 05:21 → 3E 05:21